=== PATIENT | male | born 1980 | race Caucasian/White ===

== ENCOUNTER 2018-04-04 23:51 | Emergency (ER) | payer MEDICAID ==
[2018-04-05] MEDS ORDERED: KETOROLAC 15 MG/1 ML SDV IM ONE (00:14)
[2018-04-05] MEDS ORDERED: HYDROCODONE/APAP 5/325 TAB PO ONE (00:32)
[2018-04-05] MEDS ORDERED: HYDROCODONE/APAP 5/325 TAB ONE (00:32)
--- NOTE | 2018-04-05 00:37 | EDPHY ---
H & P Stated Complaint: fell 5ft off a ladder on back unknown LOC Time Seen by Provider: 04/05/18 00:07 HPI/ROS: HPI: The patient presents with back pain which has been present since 8:30 p.m. When he had a fall from a ladder. He was going onto a flat pitched roof to retrieve some trash. When he was stepping down the ladder, he missed a step because it was dark outside and he fell backwards onto grass and dirt which was uneven. He had pain immediately. He did not lose consciousness. He was unable to stand at 1st but eventually was able to. He is only comfortable when he is sitting upright and has pain with movement in any position. Pain is described as both dull and sharp without radiation throughout his thoracic and lumbar spine. He also has left posterior chest wall tenderness without any shortness of breath. He denies any numbness or tingling of his legs. He does not have any bowel or bladder symptoms. REVIEW OF SYSTEMS 10 systems were reviewed and negative with the exception of the elements mentioned in the history of present illness. PMHx: Occasional low back pain, works as a manufacturing sr engineer [employer] General Appearance: Alert, no distress Head: Atraumatic Eyes: Pupils equal, round, reactive Neck: Non- tender, trachea midline Respiratory: Chest wall tenderness of the left lateral lower rib segments, no subcutaneous air, lungs clear bilaterally Cardiovascular: Regular rate and rhythm Abdomen: Abdomen is soft and non-tender, pelvis stable Skin: No lacerations, No abrasion Back: There is midline tenderness diffusely throughout the thoracic and lumbar spine with moderate paraspinal tenderness bilaterally Extremities: Non-tender, full range of motion Neurological: A&Ox3, GCS=15,normal motor function with 5/5 strength in all 4 extremities, normal sensory exam Source: Patient Exam Limitations: No limitations - Personal History Current Tetanus/Diphtheria Vaccine: Yes Current Tetanus Diphtheria and Acellular Pertussis (TDAP): Yes - Medical/Surgical History Hx Asthma: No Hx Chronic Respiratory Disease: No Hx Diabetes: No Hx Cardiac Disease: No Hx Renal Disease: No Hx Cirrhosis: No Hx Alcoholism: No Hx HIV/AIDS: No Hx Splenectomy or Spleen Trauma: No Other PMH: right knee surgery - Social History Smoking Status: Current every day smoker Constitutional: Initial Vital Signs Temperature (C) 36.6 C 04/04/18 23:53 Heart Rate 112 H 04/04/18 23:53 Respiratory Rate 16 04/04/18 23:53 Blood Pressure 131/82 H 04/04/18 23:53 O2 Sat (%) 94 04/04/18 23:53 O2 Delivery Mode Room Air Allergies/Adverse Reactions: amoxicillin Allergy (Verified 04/04/18 23:57) Penicillins Allergy (Verified 04/04/18 23:56) Sulfa (Sulfonamide Antibiotics) Allergy (Verified 04/04/18 23:57) sulfabenzamide Allergy (Verified 04/04/18 23:57) Home Medications: Medication Instructions Recorded NK [No Known Home Meds] 04/04/18 Medical Decision Making - Diagnostics Imaging Results: Chest x-ray with left-sided rib view show no fracture, no pneumothorax, no infiltrate, interpreted by me, radiology interpretation is pending. CT thoracic and lumbar spine without contrast demonstrates no acute fracture, at L4-L5 there is central canal stenosis due to soft disc, these findings were discussed with Dr. Knight the radiologist transmission repairer. Imaging: Discussed imaging studies w/ inbound call center representative Radiologist, I viewed and interpreted images myself Differential Diagnosis: 37-year-old male with fall off of 5 ft ladder with thoracic and lumbar back pain. He is tender at the midline. I am concerned for fracture. He also has left-sided chest wall tenderness which raises suspicion for rib fracture. In the emergency department, the patient was given Toradol for his pain, though symptoms continued. He was subsequently given [place] which helped his symptoms. Chest x-ray showed no rib fracture, contusion, pneumothorax. CT scans of his thoracic and lumbar spine demonstrated no acute fracture, however at L4-L5 he does have central canal stenosis. The patient does have a history of intermittent low back pain at this level. He does not have any neurologic deficits, bowel or bladder changes. I do not think the low back pain is acute. He felt well enough to go home and will be discharged. He plans to turn himself in to [facility] where he has to stay for 4 days tomorrow. I discussed treatment with rest, ice or heat, ibuprofen and Tylenol. I have given him follow-up for [facility] and neuro surgery if he has any ongoing back pain. - Data Points Medications Given: Discontinued Medications Hydrocodone Bitart/Acetaminophen ([place] 5/325) 2 tab PO EDNOW ONE Stop: 04/05/18 00:33 Last Admin: 04/05/18 00:42 Dose: 2 tab Ketorolac Tromethamine (Toradol) 30 mg IM EDNOW ONE Stop: 04/05/18 00:15 Last Admin: 04/05/18 00:18 Dose: 30 mg Departure - Departure Disposition: Home, Routine, Self-Care Clinical Impression: Strain of muscle and tendon of back wall of thorax, initial encounter, Left- sided chest wall pain, Central stenosis of spinal canal Fall from ladder Qualifiers: Encounter type: initial encounter Qualified Code(s): W11.XXXA - Fall on and from ladder, initial encounter Lumbar spine strain Qualifiers: Encounter type: initial encounter Qualified Code(s): S39.012A - Strain of muscle, fascia and tendon of lower back, initial encounter Condition: Good Instructions: Back Pain (ED) Additional Instructions: For your pain, I recommend you take Naprosyn 500 mg twice a day with Tylenol 1000 mg 4 times a day. You should use an ice pack or heating pack for 20 min at a time 3 to 4 times a day at least. You should not perform any heavy lifting for the next [address] scan showed no breaks of your spine, however in her lower spine there is something called stenosis which can cause chronic low back pain. Because of that, I have given you information for the neurosurgeon to follow up with if you have ongoing low back pain. Your chest x-ray showed no broken ribs. You should return to the emergency department if your worse in any way. Referrals: [facility],. [Clinic] - As per Instructions Benny Lal MD [Medical Doctor] - As per Instructions
[2018-04-05 01:54] VITALS: BP 122/88
== END 2018-04-05 01:53 | disposition home or self-care (01) ==
DX: S29.012A Strain of muscle and tendon of back wall of thorax, initial encounter (principal); R07.89 Other chest pain; M48.02 Spinal stenosis, cervical region; W11.XXXA Fall on and from ladder, initial encounter; Y93.89 Activity, other specified; F17.200 Nicotine dependence, unspecified, uncomplicated; Z88.0 Allergy status to penicillin; Z88.2 Allergy status to sulfonamides
CPT/HCPCS: J1885